=== PATIENT | female | born 1985 | race Caucasian/White ===

== ENCOUNTER 2017-03-19 05:46 | Inpatient (IN) ==
[2017-03-19] MEDS ORDERED: OXYTOCIN DRIP 30 UNIT/500 ML ML IV PRN (05:55)
[2017-03-19] MEDS ORDERED: D5LR 1,000 ML IV PRN (05:55)
[2017-03-19] MEDS ORDERED: CALCIUM CARBONATE Chewable 500mg TABLET PO PRN ×2 (05:55→15:55)
[2017-03-19] MEDS ORDERED: LIDOCAINE 1% (10mg/ml) 2mL INJ PF SDV ID PRN (05:55)
[2017-03-19] MEDS ORDERED: MAG-AL + SIM ORAL LIQUID 30ml PO PRN ×2 (05:55→15:55)
[2017-03-19] MEDS ORDERED: CARBOPROST 250 MCG/ML INJECTION IM PRN (05:55)
[2017-03-19] MEDS ORDERED: METHYLERGONOVINE 0.2 MG/ML INJECTION IM PRN (05:55)
[2017-03-19] MEDS ORDERED: LR 1,000 ML IV PRN (05:55)
[2017-03-19] MEDS ORDERED: ACETAMINOPHEN 500 MG TABLET PO PRN ×2 (05:55→15:55)
[2017-03-19 06:11] VITALS: O2SAT 100; BMI 67.3
--- NOTE | 2017-03-19 08:25 | Anesthesia Preoperative Report ---
Anesthesia Epidural/Spinal Rec - Date and Time Date: 03/19/17 Procedure: Labor Epidural Plan: Epidural - Vital Signs Vital Signs: Temperature 97.9 F 03/19/17 06:21 Pulse Rate 81 03/19/17 06:21 Respiratory Rate 16 03/19/17 06:21 Blood Pressure 102/57 03/19/17 06:21 Pulse Oximetry 100 03/19/17 06:21 /Para: P:2 - Medictaions & Allergies Inpatient Medications: Current Medications Acetaminophen (Tylenol) 500 - 1,000 mg PO Q4H PRN PRN Reason: Pain Last Admin: 03/19/17 07:08 Dose: 1,000 mg Al Hydroxide/Mg Hydroxide (Maalox Plus) 30 ml PO Q3H PRN PRN Reason: Indigestion Calcium Carbonate (Tums) 500 - 1,000 mg PO Q2H PRN PRN Reason: Indigestion Carboprost Tromethamine (Hemabate) 250 mcg IM O PRN PRN Reason: .Downtime Dextrose/Lactated Ringer's (Dextrose 5%-Lactated Ringers) 1,000 mls @ 125 mls/ hr IV .Q8H PRN PRN Reason: Labor Last Admin: 03/19/17 06:18 Dose: 125 mls/hr Oxytocin (Pitocin Drip) 30 unit in 500 mls @ 2 mls/hr IV .Q24H PRN; Protocol PRN Reason: Induction/Augmentation Last Admin: 03/19/17 06:19 Dose: 2 mls/hr Lactated Ringer's (Lactated Ringers) 1,000 mls @ 999 mls/hr IV .Q1H1M PRN Last Admin: 03/19/17 06:17 Dose: 999 mls/hr Lidocaine HCl (Xylocaine-Mpf 1% Vial) 0.2 mg ID O PRN PRN Reason: IV Start Methylergonovine Maleate (Methergine) 0.2 mg IM O PRN Misoprostol (Cytotec) 800 mcg OR ONCE PRN Allergies/Adverse Reactions: Allergies Allergy/AdvReac Type Severity Reaction Status Date / Time No Known Drug Allergies Allergy Mild Verified 04/19/11 14:05 - Home Medications Home Medications: Home Medications Medication Instructions Recorded Confirmed Type Vits W-Ca,Fe,Fa(<1MG) 1 tab PO DAILY #0 04/19/11 History () Iron 03/07/17 History Ranitidine 03/07/17 History - Medical History Other History: Reports: Now - Surgical History Anesthesia Reactions: None Hx Family Anesthesia Reaction: No History of Motion Sickness: No - Social History Second Hand Exposure: No Substance Use Type: does not use Alcohol Intake Frequency: does not drink Hx Chewing Tobacco Use: No - Pertinent Findings Lab Data: CBC and BMP 03/19/17 06:15 EKG Rhythm: Normal Sinus Rhythm - Physical Exam Respiratory Exam: lungs clear Cardiovascular Exam: regular rate and rhythm - Airway Assessment Mallampati Score: II TMD: 3 Fingerbreadths Neck Extension: good Overall Assessment: may be difficult intubation - ASA ASA Score: 2 - Discussion Discussion: Discussed risks/options/alternatives of anesthesia and questions answered. Patient consents. Nursing pain assessment noted. Anesthesia Discussion: spouse Attestation Statement: Prior to the delivery of any anesthetic medication, I examined the patient, developed the plan, obtained the patient's consent and discussed the risk and benefits of the procedure with the patient/guardian.
[2017-03-19] MEDS ORDERED: DiphenhydrAMINE 50 MG/ML INJECTION IVP PRN (11:12)
[2017-03-19] MEDS ORDERED: ROPIVACAINE 1% 10MG/ML INJ 200 MG, SUFentanil 50 MCG in NS 100 ML EPI PRN (11:12)
[2017-03-19] MEDS ORDERED: NALOXONE 0.4 MG/ML INJECTION IVP PRN (11:12)
[2017-03-19] MEDS ORDERED: ONDANSETRON 4 MG/2 ML INJECTION IVP PRN (11:12)
[2017-03-19] MEDS ORDERED: SALINE FLUSH 10ml SYRINGE IV PRN (15:55)
[2017-03-19] MEDS ORDERED: DiphenhydrAMINE 25 MG CAPSULE PO PRN (15:55)
[2017-03-19] MEDS ORDERED: HYDROCORTISONE 2.5% CREAM 30gm RECTALLY PRN (15:55)
[2017-03-19] MEDS ORDERED: OXYTOCIN DRIP 30 UNIT/500 ML ML IV SCH (15:55)
[2017-03-19] MEDS: IBUPROFEN 800 MG TABLET PO PRN (16:02)
[2017-03-19] MEDS: HYDROCODONE/APAP 5mg/325mg TABLET PO PRN (18:42)
--- NOTE | 2017-03-19 19:27 | Labor and Delivery Note ---
DATE OF DELIVERY 03/19/2017 NARRATIVE Ms. Bettencourt progressed very well and very rapidly from 3 cm to 6 to complete in about two hours' time. She then pushed for one contraction, delivering the head in the OA presentation. There was a loose nuchal cord x 1 that was reduced. There was then some shoulder dystocia resolved by Nieves maneuver and excellent pushing by patient. The baby was then delivered in total. He was then bulb suctioned. After a little over a minute I doubly clamped the cord. Cord was cut by the baby's father, Arnold. The baby was then given to the nurses for care and subsequently placed on mother's abdomen afterward. This was a liveborn male with Apgars of 8/9/9, weighing 8 pounds 6.4 ounces. The placenta delivered spontaneously intact. It had a normal configuration and normal-appearing three-vessel cord. There was a second-degree midline laceration that was repaired in the usual fashion with a 2-0 Vicryl. Total blood loss was approximately 400 mL. At the time of this dictation mother and baby are doing well. [facility] CENTERChantel
[2017-03-20] MEDS: HYDROCODONE/APAP 5mg/325mg TABLET PO PRN ×3 (02:41→16:31)
[2017-03-20] MEDS: IBUPROFEN 800 MG TABLET PO PRN ×2 (02:41→12:18)
--- NOTE | 2017-03-20 07:56 | Anesthesia Postoperative Note ---
- Date and Time Date: 03/20/17 Time: 07:55 - Status Patient Participated in Evaluation: Patient Participated in Person Vital Signs: Temperature 97.7 F 03/20/17 03:30 Pulse Rate 67 03/20/17 03:30 Respiratory Rate 16 03/20/17 03:30 Blood Pressure 112/62 03/20/17 03:30 Pulse Oximetry 100 03/20/17 03:30 Respiratory Function: Airway Patent Cardiovascular Function: Regular Pulse EKG: Sinus Rhythm Mental Status: Alert and Oriented Pain Intensity: 2 Hydration: Taking PO Fluids Complications During Recover: None Apparent - Follow-Up Instructions Instructions: Per Surgeon
--- NOTE | 2017-03-20 08:14 | OB/GYN Progress Note ---
OB-PP Progress Note - General PPD1 - Subjective Date: 03/20/17 Lochia: Moderate Pain: controlled Voiding: voiding Nausea or Vomiting Present: No - Objective Vital Signs: Last Vital Signs Temp 97.7 F 03/20/17 03:30 Pulse 67 03/20/17 03:30 Resp 16 03/20/17 03:30 BP 112/62 03/20/17 03:30 Pulse Ox 100 03/20/17 03:30 Urine Output: good General: alert and oriented Abdomen: fundus firm Extremities: non-tender Edema: none - Assessment Assessment: - Plan Plan: routine care, discharge home (Would like to be dismissed today after 24hrs. Baby circ this a.m. )
--- NOTE | 2017-03-20 08:19 | Discharge Instructions ---
Discharge Plan - Med Rec/Dispo Prescriptions: New Hydrocodone/APAP 5/325 [Orland 5/325] 1 - 2 tab PO Q4H PRN #15 tab PRN Reason: Pain Ibuprofen [Motrin] 800 mg PO Q8H PRN #50 tab PRN Reason: Pain Continue Vits W-Ca,Fe,Fa(<1MG) () 1 tab PO DAILY #0 No Action Ranitidine Iron Discharge Instructions/Outpatient Orders: Provider Discharge Instructions Location: Determined By Patient - Disposition 01 Discharged Home, Self-Care
[2017-03-20] MEDS ORDERED: DOCUSATE CALCIUM 240 MG CAPSULE PO SCH (09:00)
[2017-03-20 16:17] VITALS: BP 131/77; PULSE 61; RESP 17; TEMP 97
== END 2017-03-20 18:32 | disposition home or self-care (01) | DRG 775 ==
LOC: MC 05:46
PROVIDERS: ADMIT Obstetrics & Gynecology; ATTEND Obstetrics & Gynecology